=== PATIENT | male | born 1945 | race Caucasian/White ===

== ENCOUNTER 2018-07-03 12:18 | Day surgery (SDC) | payer MEDICARE, BC ==
[2018-07-03] VITALS (9 sets, daily range): BP systolic 114–147; BP diastolic 57–76; PULSE 66–80; TEMP 97.2–98
[~2018-07-03] VITALS: Ht 172.7 cm; Wt 93.0 kg
[2018-07-03] MEDS ORDERED: ZETIA 10MG TAB10 MG PO (13:58)
[2018-07-03] MEDS ORDERED: NORVASC 5MG5 MG/TAB PO (13:58)
[2018-07-03] MEDS ORDERED: DOXYCYCLINE HY100 MG PO (13:59)
[2018-07-03] MEDS ORDERED: FLOMAX 0.40.4 MG/CAP PO (14:00)
[2018-07-03] MEDS ORDERED: NEURONTIN100 MG/CAP PO (14:01)
[2018-07-03] MEDS ORDERED: CELEXA 20MG20 MG/TAB PO (14:01)
[2018-07-03] MEDS ORDERED: MASON NATURAL1200 MG PO (14:02)
[2018-07-03] MEDS ORDERED: NEURONTIN300 MG/CAP PO (14:02)
[2018-07-03] MEDS ORDERED: MULTIPLE VITAMI1 CAP PO (14:03)
[2018-07-03] MEDS ORDERED: TYLENOL 500MG500 MG PO (14:04)
[2018-07-03] MEDS ORDERED: TOPROL XL 25MG25 MG PO (14:05)
[2018-07-03] MEDS ORDERED: PROBIOTIC FORMU1 CAP PO (14:07)
[2018-07-03] MEDS ORDERED: TURMERIC500 MG PO (14:07)
[2018-07-03] MEDS ORDERED: MELAT3MGTAB PO (14:08)
--- NOTE | 2018-07-03 17:20 | NUR ---
returned from surgery per bed, awake and alert, IV infusing per dial-a-flow at 125ml/hr, O2 off and O2 sat 97%, bowling cath patent draining clear fruit punch colored urine in tubing, CBI infusing and rate increased to mod to higher rate, denies needs at this time
--- NOTE | 2018-07-03 17:30 | NUR ---
urine is a light fruit punch now and CBI continues, full assessment completed, see interventions for further info, given water to drink but declines wanting anything to eat at this time, is at bedside
--- NOTE | 2018-07-03 18:00 | NUR ---
resting in bed between checks, denies needs
--- NOTE | 2018-07-03 18:57 | NUR ---
bedside shift report given to YULI Rosales, will order supper now
--- NOTE | 2018-07-03 20:45 | NUR ---
Assessment completed. Patient is A&O x 4. VSS, on room air. Denies any pain. Tolerated supper with no c/o nausea. Kc catheter to DD with CBI running at a slow-moderate rate, urine draining is reddish clear increased CBI to a moderate rate. BLE scds on. IV to INT with good PO intake. is at bedside. Denies any concerns or needs, call light is within reach.
--- NOTE | 2018-07-03 22:02 | NUR ---
Emptied bowling catheter bag and noticed small clots in bag and tubing, increased CBI to a moderate-fast rate.
[2018-07-04 00:55] VITALS: BP 97/52; PULSE 66; TEMP 98.6
[2018-07-04 03:39] VITALS: BP 107/51; PULSE 67; TEMP 98.6
--- NOTE | 2018-07-04 04:52 | NUR ---
Patient has rested for short periods of time through the night. VSS, remains on room air. Denies any pain. Kc catheter to DD with pink urine draining with occasionally small clots. CBI has been titrated back and forth between slow and moderate to keep urine light pink. Denies any concerns or needs this morning, call light remains within reach.
[2018-07-04 08:00] VITALS: BP 118/58; PULSE 65; TEMP 98
--- NOTE | 2018-07-04 09:06 | NUR ---
Initial visit; Patient and his thanked Spinning Machine Tender for looking in on him and offering encouragement and God's blessings.
--- NOTE | 2018-07-04 10:00 | NUR ---
Patient alert and oriented, answers questions appropriately. See assessment. Kc catheter patent and draining luther urine, CBI infusing at moderate rate. No c/o pain or discomfort.
--- NOTE | 2018-07-04 10:18 | NUR ---
PATIENT IS ALERT AND ORIENTED X4. PATIENT WAS GIVEN ALL MORNING MEDICINE. PATIENT DENIES ANY PAIN AT THIS TIME. FLUIDS CHANGED AND OUTPUT RECORDED. PATIENT AMBULATED IN [facility]. PATIENT IN ROOM IN BED WITH AT BEDSIDE. PATIENT HAS NO COMPLAINTS AT THIS TIME. WILL CONTINUE TO MONITOR.
--- NOTE | 2018-07-04 10:23 | NUR ---
MARCELA and SW student met with the patient and patient's , Theresa, to discuss discharge plan. The patient lives in [place] with his . The patient does not use any DME but has a cane availble if needed. The patient's PCP is Dr. Glynn Varela and receives his medications from [facility] in [place]. The patient reports no difficulties obtaining his medications. The patient states that he has a DPOA-HC completed at home and it appoints his , Theresa. The patient plans to return home with his upon discharge. No additional needs at this time.
[2018-07-04 12:00] VITALS: BP 120/54; PULSE 65; TEMP 98.5
--- NOTE | 2018-07-04 13:37 | NUR ---
PATIENT IS ALERT AND ORIENTED X4. VSS. PATIENT WAS AMBULATED IN [facility]. BED BATH GIVEN AND LINENS CHANGED. PATIENT HAS NO COMPLAINTS OF PAIN AT THIS TIME. PATIENT IS IN BED WITH AT BEDSIDE. WILL CONTINUE TO MONITOR.
[2018-07-04 16:10] VITALS: BP 129/60; PULSE 67; TEMP 98.4
[2018-07-04 19:11] VITALS: BP 121/57; PULSE 72; TEMP 98.8
--- NOTE | 2018-07-04 21:00 | NUR ---
Assessment completed. Patient is A&O x 4. VSS, on room air. Kc catheter to DD with pink clear urine draining at this time. CBI is running at a moderate rate. Tolerating diet with no c/o nausea. Up with standby assist with a steady gait. is at bedside. Denies any concerns or needs, call light is within reach.
[2018-07-05 00:28] VITALS: BP 103/54; PULSE 62; TEMP 98.4
[2018-07-05 04:34] VITALS: BP 99/55; PULSE 58; TEMP 98
--- NOTE | 2018-07-05 05:32 | NUR ---
Patient has rested intermittently through the night. VSS, remains on room air. Continues to deny any pain. Kc catheter remains to DD with light pink urine draining. CBI is running at a slow-moderate rate. Denies any concerns or needs. remains at bedside. Bed is in a low position with call light in reach.
[2018-07-05 08:00] VITALS: BP 114/59; PULSE 58; TEMP 98.1
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
--- NOTE | 2018-07-05 09:50 | NUR ---
Assessment completed. A&O x4. VSS. Patient's bowling to DD, draining pink, clear urine. Pt has no c/o pain at this time. is at bedside. Pt ambulated the frank with me and is now resting in bed. Call light within reach.
[2018-07-05 12:40] VITALS: BP 128/65; PULSE 69
--- NOTE | 2018-07-05 12:46 | NUR ---
rounded. Orders obtained. Patient bowling to be primed & pulled with student nurse with her instuctor. Plan of care reviewed with patient. Miles garcia
--- NOTE | 2018-07-05 12:59 | NUR ---
Follow-up visit: Patient and his thanked [employer] Sql Developer for looking in on them again today and wishing patient well.
--- NOTE | 2018-07-05 13:06 | NUR ---
Patient resting in bed with at beside. No c/o pain at this time. Kc was discontinued with balloon intact. Pulled 30mL of sterlie water from the balloon. Rachel care provided. Patient is now hydrating to start his 6 cup test, so he can go home. Will continue to monitor.
--- NOTE | 2018-07-05 14:28 | NUR ---
Patient ready for discharge. He & his are wanting to get home before dark. Patient voiding x3 without difficulty, red tinged urine, no clots or sediment noted. We reviewed all dischagre paperwork. We discussed home medications. Follow up appt reviewed. Activity & diet reccommentations discussed. He and his deny questions or concerns. Patient ambulated out &his taking him home
== END 2018-07-05 14:32 | disposition home or self-care (01) ==
LOC: SDCO 12:18 → SURG 17:20 → SDCO 07-05 14:32
DX: N40.1 Benign prostatic hyperplasia with lower urinary tract symptoms (principal); R33.8 Other retention of urine; R39.12 Poor urinary stream; R35.0 Frequency of micturition; I25.10 Atherosclerotic heart disease of native coronary artery without angina pectoris; I10 Essential (primary) hypertension; Z79.899 Other long term (current) drug therapy; Z88.6 Allergy status to analgesic agent; Z91.040 Latex allergy status; Z80.3 Family history of malignant neoplasm of breast; Z80.1 Family history of malignant neoplasm of trachea, bronchus and lung; Z95.1 Presence of aortocoronary bypass graft; Z95.5 Presence of coronary angioplasty implant and graft; K44.9 Diaphragmatic hernia without obstruction or gangrene; F32.9 Major depressive disorder, single episode, unspecified
CPT/HCPCS: OP; J0690; J1100; J1170; J2405; J2704; J3010; J7120

== ENCOUNTER 2022-06-12 10:03 | Emergency (ER) | payer MEDICARE, BC ==
[~2022-06-12] VITALS: Ht 172.7 cm; Wt 88.2 kg
[~2022-06-12 10:03] MED LIST: CELEXA 20MG20 MG/TAB PO; DOXYCYCLINE HY100 MG PO; FLOMAX 0.40.4 MG/CAP PO; MASON NATURAL1200 MG PO; MELAT3MGTAB PO; MULTIPLE VITAMI1 CAP PO; NEURONTIN100 MG/CAP PO; NEURONTIN300 MG/CAP PO; NORVASC 5MG5 MG/TAB PO; PROBIOTIC FORMU1 CAP PO; TOPROL XL 25MG25 MG PO; TURMERIC500 MG PO; TYLENOL 500MG500 MG PO; ZETIA 10MG TAB10 MG PO
[2022-06-12 10:07] VITALS: TEMP 96.4
[2022-06-12 10:22] LABS: BASO # 0.1 K/mm3 (0.0-0.2); BASO % 0.7 % (0.0-2.0); EOS # 0.1 K/mm3 (0.0-0.7); EOS % 1.3 % (0.0-4.0); GRAN # 4.9 K/mm3 (1.4-6.5); GRAN % 64.4 % (42.2-75.2); LYMPH # 1.2 K/mm3 (1.2-3.4); LYMPH % 16.4 % (20.0-51.0); MEAN CELL VOLUME 107 fl (80.0-100.0); MEAN CORPUSCULAR HGB CONC 35 g/dl (33.0-37.0); MEAN PLATELET VOLUME 9.6 fl (7.4-10.4); MONO # 1.3 K/mm3 (0.1-0.6); MONO % 16.8 % (1.7-9.3); PLATELET COUNT 353 K/mm3 (130-400); RED BLOOD COUNT 2.39 M/mm3 (4.20-5.60); REDCELL DISTRIBUTION WIDTH-CV 19.5 % (11.5-14.5)
[2022-06-12 10:32] LABS: HEMATOCRIT 25.5 % (42.0-52.0); HEMOGLOBIN 8.8 g/dl (13.5-18.0); MEAN CORPUSCULAR HEMOGLOBIN 37 pg (27-31)
[2022-06-12 10:37] LABS: C-REACTIVE PROTEIN 0.33 mg/dL (0.00-0.50); CALCIUM 9.3 mg/dL (8.4-10.2); CREATININE, serum 1.07 mg/dL (0.72-1.25); MAGNESIUM 2.4 mg/dL (1.6-2.6); POTASSIUM 4.2 mmol/L (3.5-4.5); TOTAL PROTEIN 6.7 gm/dL (6.2-8.1)
[2022-06-12 10:43] LABS: TROPONIN-I 0.01 ng/mL (0.00-0.033)
[2022-06-12 10:55] LABS: BILIRUBIN,TOTAL 1.6 mg/dL (0.2-1.2)
[2022-06-12 14:07] VITALS: BP 112/59; PULSE 57
== END 2022-06-12 14:20 | disposition home or self-care (01) ==
LOC: COL.ER 10:03
PROVIDERS: Emergency Medicine
DX: G40.909 Epilepsy, unspecified, not intractable, without status epilepticus (principal); R11.2 Nausea with vomiting, unspecified; D64.9 Anemia, unspecified; R00.1 Bradycardia, unspecified; Z95.1 Presence of aortocoronary bypass graft; Z95.5 Presence of coronary angioplasty implant and graft; Z91.040 Latex allergy status; Z28.310 Unvaccinated for COVID-19; Z79.899 Other long term (current) drug therapy
CPT/HCPCS: J2405; J2550; J7030; Q9967